=== PATIENT | male | born 1975 | race African-American/Black ===

== ENCOUNTER 2017-11-25 17:42 | Emergency (ER) | payer SELFPAY ==
[2017-11-25 17:48] VITALS: BP 166/95; PULSE 69; RESP 12; TEMP 98.5; O2SAT 97
[2017-11-25] MEDS ORDERED: cefTRIAXone 250 MG VIAL IM ONE (18:00)
[2017-11-25] MEDS ORDERED: AZITHROMYCIN PWD FOR SUSP 1 GM PACKET PO ONE (18:00)
--- NOTE | 2017-11-25 18:04 | PD ---
HPI Chief Complaint: Complaint Time Seen by Provider: 17:58 Travel History International Travel<30 days: No Contact w/Intl Traveler<30days: No Traveled to known affect area: No History of Present Illness HPI 42-year-old male presents to the emergency room requesting STD check. Patient states he had sex with a new partner in the following day he developed burning with urination. He was using a condom but it broke. He denies fever, chills, nausea, vomiting, or testicular pain. Denies any penile drainage. He only reports history of hypertension. PFS Social History Tobacco Use: No Allergies-Medications (Allergen,Severity, Reaction): Coded Allergies: No Known Allergies (Unverified , 11/25/17) Review of Systems Except as stated in HPI: all other systems reviewed are Neg Physical Exam Narrative GENERAL: Well-nourished, well-developed male in no acute distress. Afebrile. Ambulatory. SKIN: Focused skin assessment warm/dry. HEAD: Normocephalic. EYES: No scleral icterus. No injection or drainage. NECK: Supple, trachea midline. No JVD or lymphadenopathy. CARDIOVASCULAR: Regular rate and rhythm without murmurs, gallops, or rubs. RESPIRATORY: Breath sounds equal bilaterally. No accessory muscle use. GENITOURINARY: Examined in the presence of a nurse. Circumcised. Testes descended bilaterally without evidence of rotation. No lesions or erythema. No urethral discharge. Data Data Last Documented VS Vital Signs Date Time Temp Pulse Resp B/P (MAP) Pulse Ox O2 Delivery O2 Flow Rate FiO2 11/25/17 17:48 98.5 69 12 166/95 (118) 97 Orders Orders Gc And Chlamydia Pcr (11/25/17 17:58) Azithromycin Powd Pack (Zithromax Powd P (11/25/17 18:00) Ceftriaxone Inj (Rocephin Inj) (11/25/17 18:00) Azithromycin (Zithromax) (11/25/17 18:15) Ed Discharge Order (11/25/17 18:04) [facility] Medical Decision Making Medical Screen Exam Complete: Yes Emergency Medical Condition: Yes Medical Record Reviewed: Yes Differential Diagnosis gonorrhea, UTI, chlamydia Narrative Course Patient presents requesting STD check after probable exposure. He has dysuria but denies any other symptoms. Physical exam is unremarkable. Gonorrhea and chlamydia PCR ordered and pending. Patient treated empirically with ceftriaxone and azithromycin. Told to follow-up with health department for complete STD panel. Told to return for worsening symptoms. He understands and agrees to plan. Diagnosis Primary Impression: Screen for STD (sexually transmitted disease) Referrals: Primary Care Physician Additional Instructions: Safe sex practices prevent STDs. Follow-up at the health department for complete STD panel. Return for worsening symptoms. Disposition: 01 DISCHARGE HOME Condition: Stable Leslie Johnston Nov 25, 2017 18:04
[2017-11-25] MEDS ORDERED: AZITHROMYCIN 250 MG TAB PO ONE (18:15)
== END 2017-11-25 18:43 | disposition home or self-care (01) ==
LOC: NEPK 17:42
DX: Z11.3 Encounter for screening for infections with a predominantly sexual mode of transmission (principal); R30.0 Dysuria; I10 Essential (primary) hypertension
CPT/HCPCS: 87491; 87591; 96372; 99283; J0696